=== PATIENT | female | born 1940 | race Caucasian/White ===

== ENCOUNTER 2019-10-05 23:14 | Inpatient (IN) | payer MEDICARE, BC ==
[~2019-10-05] VITALS: Ht 157.5 cm; Wt 73.9 kg
[~2019-10-05 23:14] MED LIST: ACIDOPHILUS LA1 EAC1 ORAL; CIPROFLOXACIN500 M2 ORAL; COLACE100 MG ORAL; HYZAAR 50-12.51 EACH ORAL; IBUPROFEN600 MG ORAL; LEXAPRO20 MG ORAL; METFORMIN HCL500 M1 ORAL; METRONIDAZOLE500 MG ORAL; PERCOCET 5-3251 EACH ORAL; SIMVASTATIN10 MG ORAL; SYNTHROID75 MCG ORAL; TENORMIN25 MG ORAL; ULTRAM ER100 MG PO; ZOFRAN4 MG/5 ML ORAL
[2019-10-06] VITALS (8 sets, daily range): BP systolic 119–151; BP diastolic 49–72
[2019-10-06] MEDS ORDERED: Omnipaque-300 100ml vial INJ PRN (00:30)
--- NOTE | 2019-10-06 00:40 | Emergency Room Report ---
History of Present Illness General Chief Complaint: Abdominal Pain Source: Patient Present Illness HPI 79-year-old female history of hypertension, history of diverticulitis presents with left lower quadrant pain x3 days, subjective fever/chills, no nausea no vomiting, she endorses a sharp pain no aggravating alleviating factors severity is moderate, constant, patient is worried it may be diverticulitis again patient presents for evaluation Allergies: Coded Allergies: SULFA (SULFONAMIDE ANTIBIOTICS) (Verified Allergy, Intermediate, disorientation, 09/15/14) [place] (Verified Allergy, Unknown, 12/13/15) Patient History Past Medical History: see triage record Reviewed Nursing Documentation: PMH: Agreed; PSxH: Agreed Nursing Documentation-PMH Past Medical History: No History, Except For Hx Cardiac Problems: Yes - HYSTERECTOMY GERD Hx Hypertension: Yes Hx Asthma: Yes - light asthma Hx Diabetes: Yes Hx Cancer: No Hx Gastrointestinal Problems: Yes - diverticulitis Hx Neurological Problems: No Review of Systems All Other Systems: negative except mentioned in HPI Physical Exam Vital Signs Date Time Temp Pulse Resp B/P (MAP) Pulse Ox O2 Delivery O2 Flow Rate FiO2 10/05/19 23:36 99.0 93 14 94 Room Air Sp02 EP Interpretation: reviewed, normal General Appearance: well appearing, no apparent distress, alert Head: normocephalic, atraumatic Eyes: bilateral eye PERRL, bilateral eye EOMI ENT: uvula midline, moist mucus membranes Neck: supple, thyroid normal, supple/symm/no masses Respiratory: lungs clear, no respiratory distress, no retraction, no accessory muscle use Cardiovascular #1: normal peripheral pulses, regular rate, rhythm, no edema, no gallop, no murmur Gastrointestinal: non tender, soft, no guarding, no rebound, tenderness - Left lower quadrant Musculoskeletal: normal inspection Neurologic: alert, oriented x3 Psychiatric: mood/affect normal Skin: no rash, warm/dry Medical Decision Making Diagnostic Impression: Primary Impression: Diverticulitis ER Course 79-year-old female presents with left lower quadrant pain x3 days concerning for diverticulitis versus appendicitis versus gastroenteritis Will provide pain medication, fluid resuscitation, plan to admit patient for pain control as an possible IV antibiotics Patient given Zosyn Patient given fluids Patient admitted to Dr. Patricio Laboratory Tests Test 10/06/19 00:35 10/06/19 02:15 White Blood Count 20.2 K/UL (4.8-10.8) H Red Blood Count 4.58 M/UL (4.20-5.40) Hemoglobin 14.0 G/DL (12.0-16.0) Hematocrit 41.3 % (37.0-47.0) Mean Corpuscular Volume 90 FL (80-99) Mean Corpuscular Hemoglobin 30.5 PG (27.0-31.0) Mean Corpuscular Hemoglobin Concent 33.9 G/DL (32.0-36.0) Red Cell Distribution Width 12.1 % (11.6-14.8) Platelet Count 367 K/UL (150-450) Mean Platelet Volume 6.5 FL (6.5-10.1) Neutrophils (%) (Auto) % (45.0-75.0) Lymphocytes (%) (Auto) % (20.0-45.0) Monocytes (%) (Auto) % (1.0-10.0) Eosinophils (%) (Auto) % (0.0-3.0) Basophils (%) (Auto) % (0.0-2.0) Differential Total Cells Counted 100 Neutrophils % (Manual) 82 % (45-75) H Lymphocytes % (Manual) 10 % (20-45) L Monocytes % (Manual) 5 % (1-10) Eosinophils % (Manual) 1 % (0-3) Basophils % (Manual) 0 % (0-2) Band Neutrophils 2 % (0-8) Platelet Estimate Adequate Platelet Morphology Normal Red Blood Cell Morphology Normal Sodium Level 140 MMOL/L (136-145) Potassium Level 4.7 MMOL/L (3.5-5.1) Chloride Level 100 MMOL/L (98-107) Carbon Dioxide Level 29 MMOL/L (21-32) Anion Gap 11 mmol/L (5-15) Blood Urea Nitrogen 22 mg/dL (7-18) H Creatinine 1.3 MG/DL (0.55-1.30) Estimate Glomerular Filtration Rate mL/min (>60) Glucose Level 229 MG/DL (74-106) H Calcium Level 9.6 MG/DL (8.5-10.1) Total Bilirubin 0.6 MG/DL (0.2-1.0) Aspartate Amino Transferase (AST) 11 U/L (15-37) L Alanine Aminotransferase (ALT) 19 U/L (12-78) Alkaline Phosphatase 94 U/L (46-116) Total Protein 7.6 G/DL (6.4-8.2) Albumin 3.5 G/DL (3.4-5.0) Globulin 4.1 g/dL Albumin/Globulin Ratio 0.9 (1.0-2.7) L Lipase 116 U/L (73-393) Urine Color Pale yellow Urine Appearance Clear Urine pH 5 (4.5-8.0) Urine Specific [place] 1.015 (1.005-1.035) Urine Protein Negative (NEGATIVE) Urine Glucose (UA) Negative (NEGATIVE) Urine Ketones Negative (NEGATIVE) Urine Blood Negative (NEGATIVE) Urine Nitrite Negative (NEGATIVE) Urine Bilirubin Negative (NEGATIVE) Urine Urobilinogen Normal MG/DL (0.0-1.0) Urine Leukocyte Esterase Negative (NEGATIVE) EKG Diagnostic Results EKG Time: 00:42 EP Interpretation: NSR, rate 84, QTc 47, no acute ST elevations, left axis deviation Rhythm Strip Diag. Results Rhythm Strip Time: 01:15 EP Interpretation: yes Rate: 85 Rhythm: NSR, no PVC's, no ectopy CT/MRI/US Diagnostic Results CT/MRI/US Diagnostic Results : Impression Final Report EXAM: CT Abdomen and Pelvis With Intravenous Contrast CLINICAL HISTORY: ABD PAIN TECHNIQUE: Axial computed tomography images of the abdomen and pelvis with intravenous contrast. CTDI is 25.6 mGy and DLP is 1456 mGy-cm. One or more of the following dose reduction techniques were used: automated exposure control, adjustment of the mA and/or kV according to patient size, use of iterative reconstruction technique. COMPARISON: December 13, 2015. FINDINGS: Lung bases: Bibasilar atelectasis. Mediastinum: Small hiatal hernia. ABDOMEN: Liver: Unremarkable. No mass. Gallbladder and bile ducts: Unremarkable. No calcified stones. No ductal dilation. Pancreas: Unremarkable. No mass. No ductal dilation. Spleen: Unremarkable. No splenomegaly. Adrenals: Stable nodularity in the left adrenal gland. Kidneys and ureters: Chronic scarring in the kidneys. No hydronephrosis. Stomach and bowel: Abnormal wall thickening of the mid sigmoid colon with associated diverticula and adjacent edema and stranding. PELVIS: Appendix: No findings to suggest acute appendicitis. Bladder: Unremarkable. No mass. Reproductive: Unremarkable as visualized. ABDOMEN and PELVIS: Intraperitoneal space: Trace amount of free fluid. No free air or fluid collections. Bones/joints: No acute fracture. No dislocation. Soft tissues: Unremarkable. Vasculature: Normal caliber abdominal aorta with atherosclerotic disease. Lymph nodes: Unremarkable. No enlarged lymph nodes. IMPRESSION: Findings consistent with acute diverticulitis in the mid sigmoid colon. Recommend short-term followup to ensure resolution and exclude underlying occult mass. Small amount of free fluid. No free air or fluid collections. Radiologist: Harleen Chauhan M.D. Electronically Signed: 10/06/19 04: 13 Study ready at 03:14 and initial results transmitted at 04:13 Last Vital Signs Date Time Temp Pulse Resp B/P (MAP) Pulse Ox O2 Delivery O2 Flow Rate FiO2 10/05/19 23:36 99.0 93 14 94 Room Air Disposition: ADMITTED INPATIENT Condition: Stable Harley Rahman MD Oct 06, 2019 00:40
[2019-10-06] MEDS ORDERED: Piperacillin/Tazobactam 3.375 GM in NS 110 ML IVPB ONE (00:45)
[2019-10-06] MEDS ORDERED: Hydromorphone 0.5mg/0.5ml inj IVP ONE ×2 (00:45→01:45)
[2019-10-06 01:15] LABS: HEMATOCRIT 41.3 % (37.0-47.0); MEAN CORPUSCULAR VOLUME 90 FL (80-99); PLATELET COUNT 367 K/UL (150-450); RED BLOOD COUNT 4.58 M/UL (4.20-5.40); RED CELL DISTRIBUTION WIDTH 12.1 % (11.6-14.8); WHITE BLOOD COUNT 20.2 K/UL (4.8-10.8)
[2019-10-06 01:21] LABS: ANION GAP 11 mmol/L (5-15); BLOOD UREA NITROGEN 22 mg/dL (7-18); CALCIUM 9.6 MG/DL (8.5-10.1); CARBON DIOXIDE 29 MMOL/L (21-32); CHLORIDE 100 MMOL/L (98-107); CREATININE 1.3 MG/DL (0.55-1.30); POTASSIUM 4.7 MMOL/L (3.5-5.1); SODIUM 140 MMOL/L (136-145)
[2019-10-06 01:27] LABS: ALANINE AMINOTRANSFERASE 19 U/L (12-78); ALBUMIN 3.5 G/DL (3.4-5.0); ALBUMIN/GLOBULIN RATIO 0.9 (1.0-2.7); ALKALINE PHOSPHATASE 94 U/L (46-116); ASPARTATE AMINO TRANSFERASE 11 U/L (15-37); BILIRUBIN,TOTAL 0.6 MG/DL (0.2-1.0)
[2019-10-06 02:27] LABS: APPEARANCE,URINE CLEAR; BILIRUBIN, URINE NEGATIVE (NEGATIVE); COLOR,URINE PALE YELLOW; GLUCOSE, URINE (UA) NEGATIVE (NEGATIVE); KETONES,URINE NEGATIVE (NEGATIVE); LEUKOCYTE ESTERASE ,URINE NEGATIVE (NEGATIVE); NITRITE,URINE NEGATIVE (NEGATIVE); PH,URINE 5 (4.5-8.0); PROTEIN,URINE NEGATIVE (NEGATIVE); UROBILINOGEN,URINE NORMAL MG/DL (0.0-1.0)
--- NOTE | 2019-10-06 04:14 | Diagnostic Imaging Report ---
EXAM: CT Abdomen and Pelvis With Intravenous Contrast CLINICAL HISTORY: ABD PAIN TECHNIQUE: Axial computed tomography images of the abdomen and pelvis with intravenous contrast. CTDI is 25.6 mGy and DLP is 1456 mGy-cm. One or more of the following dose reduction techniques were used: automated exposure control, adjustment of the mA and/or kV according to patient size, use of iterative reconstruction technique. COMPARISON: December 13, 2015. FINDINGS: Lung bases: Bibasilar atelectasis. Mediastinum: Small hiatal hernia. ABDOMEN: Liver: Unremarkable. No mass. Gallbladder and bile ducts: Unremarkable. No calcified stones. No ductal dilation. Pancreas: Unremarkable. No mass. No ductal dilation. Spleen: Unremarkable. No splenomegaly. Adrenals: Stable nodularity in the left adrenal gland. Kidneys and ureters: Chronic scarring in the kidneys. No hydronephrosis. Stomach and bowel: Abnormal wall thickening of the mid sigmoid colon with associated diverticula and adjacent edema and stranding. PELVIS: Appendix: No findings to suggest acute appendicitis. Bladder: Unremarkable. No mass. Reproductive: Unremarkable as visualized. ABDOMEN and PELVIS: Intraperitoneal space: Trace amount of free fluid. No free air or fluid collections. Bones/joints: No acute fracture. No dislocation. Soft tissues: Unremarkable. Vasculature: Normal caliber abdominal aorta with atherosclerotic disease. Lymph nodes: Unremarkable. No enlarged lymph nodes. IMPRESSION: Findings consistent with acute diverticulitis in the mid sigmoid colon. Recommend short-term followup to ensure resolution and exclude underlying occult mass. Small amount of free fluid. No free air or fluid collections.
[2019-10-06] MEDS ORDERED: Miralax 17gm pkt ORAL PRN (04:45)
[2019-10-06] MEDS ORDERED: Zolpidem 5mg tab ORAL PRN (04:45)
[2019-10-06] MEDS ORDERED: Morphine Sulfate 2mg/ml Inj(IV/IM USE ONLY) IVP PRN (04:45)
[2019-10-06] MEDS ORDERED: Morphine Sulfate 4mg/ml Inj (IV USE ONLY) IVP PRN (04:45)
[2019-10-06] MEDS: NovoLOG Insulin Flexpen SUBQ SCH ×4 (06:31→20:44)
[2019-10-06] MEDS: Atenolol 25mg tab ORAL SCH (08:47)
[2019-10-06] MEDS: Docusate 100mg cap ORAL SCH ×2 (08:47→20:43)
[2019-10-06] MEDS: Hyzaar 50-12.5mg tab ORAL SCH (08:47)
[2019-10-06] MEDS: Piperacillin/Tazobactam 3.375 GM in NS 110 ML IVPB SCH ×3 (09:51→23:15)
--- NOTE | 2019-10-06 12:42 | History & Physical ---
History and Physical History & Physicial HP dictated # [id number] Jonah Patricio MD Oct 06, 2019 12:42
[2019-10-07] VITALS (7 sets, daily range): BP systolic 120–149; BP diastolic 47–97
[2019-10-07] MEDS: Piperacillin/Tazobactam 3.375 GM in NS 110 ML IVPB SCH ×3 (06:31→22:53)
[2019-10-07] MEDS: NovoLOG Insulin Flexpen SUBQ SCH ×4 (06:43→20:41)
[2019-10-07] MEDS: Hyzaar 50-12.5mg tab ORAL SCH (09:00)
[2019-10-07] MEDS: Docusate 100mg cap ORAL SCH ×2 (09:00→20:42)
[2019-10-07] MEDS: Atenolol 25mg tab ORAL SCH (09:01)
--- NOTE | 2019-10-07 17:15 | Consultation ---
DATE OF CONSULTATION: 10/06/2019 GASTROENTEROLOGY CONSULTATION CONSULTING PHYSICIAN: Vida Torres M.D. REFERRING PHYSICIAN: Jonah Patricio M.D. CHIEF COMPLAINT: I was asked to see this patient by Dr. Jonah Patricio for evaluation of diverticulitis. HISTORY OF PRESENT ILLNESS: The patient is a pleasant 79-year-old white woman who was in her usual state of health until about 2 to 3 days prior to admission when she started noticing left lower quadrant abdominal pain which worsened with time and therefore she came to the hospital. This is her third attack of diverticulitis and she is admitted with pain. These in fact have happened over the last few years. The patient had a colonoscopy about a year ago, but she is not aware of any significant results. She has been started on antibiotics and she feels slightly better today. There has been no nausea or vomiting. The patient's bowel movements are sometimes daily, but she is somewhat irregular. PAST MEDICAL HISTORY: History of diabetes, hypertension, history of fibroids, anxiety disorder, and hypothyroidism. FAMILY HISTORY: Noncontributory. SOCIAL HISTORY: The patient does not smoke or drink. REVIEW OF SYSTEMS: Otherwise negative. MEDICATIONS: See the chart list for details. PHYSICAL EXAMINATION: GENERAL: Pleasant white woman, seen in the room. HEENT: Normocephalic and atraumatic. Sclerae anicteric. Oropharynx clear. NECK: Supple. CHEST: Clear to auscultation. CARDIOVASCULAR: Revealed regular rate. ABDOMEN: Soft with some mild pelvic tenderness, especially on the left side without guarding or rebound. EXTREMITIES: Revealed no edema. LABORATORY DATA AND IMAGING STUDIES: Reviewed. ASSESSMENT: This patient presents with recurrent diverticulitis, and this is the third episode for this patient. The patient should be given broad spectrum antibiotics and clear liquid diet should be started for now. As her exam improves, her diet can be advanced. The patient was advised on long-term need for aggressive bowel regimen to avoid constipation. In addition, should the attacks of diverticulitis become more frequent, then surgical resection may be indicated. However, at this time, medical management will be the proper choice. The patient's white count should be followed since it is quite elevated. RECOMMENDATIONS: Per above discussion and per orders written in the chart. Thank you for asking me to participate in the care of this patient. Vida Torres M.D. DR: VANDANA JOB#: [id number] CC: ARNOLD
--- NOTE | 2019-10-07 17:15 | History and Physical Report ---
DATE OF ADMISSION: 10/06/2019 CHIEF COMPLAINT: Abdominal pain. HISTORY OF PRESENT ILLNESS: This is a very pleasant 79-year-old female, who came to the emergency room with abdominal pain, which started about three days ago. The patient's pain is mostly in the left lower quadrant although she points it is not the whole lower abdomen. The patient had a history of diverticulitis before and she was worried that she may have it again and indeed in the emergency room, the CAT scan confirmed the patient has a diverticulitis and she was admitted. PAST MEDICAL HISTORY: Includes history of arthritis, tendinitis, hypertension, and diabetes mellitus. The patient has history of gastroesophageal reflux disease, hysterectomy. MEDICATIONS: Reviewed in the EMR. SOCIAL HISTORY: No history of smoking or alcohol abuse. The patient lives at home with sister who happens to be also in the emergency room now. REVIEW OF SYSTEMS: Noncontributory. PHYSICAL EXAMINATION: GENERAL: The patient is an elderly female, in no acute distress. VITAL SIGNS: Blood pressure is 136/72, pulse 61, respirations 18, and temperature 97.3. HEENT: [place] conjunctivae. Anicteric sclerae. NECK: Supple. LUNGS: Clear to auscultation. HEART: S1, S2 without murmurs or rubs. ABDOMEN: Soft. There is tenderness in the lower abdomen. EXTREMITIES: No cyanosis or edema. LABORATORY FINDINGS: [place] [address], hematocrit 41.3, hemoglobin is 14, platelet is 367,000. Chemistry panel shows serum sodium 140, potassium 4.7, chloride 100, CO2 29, BUN is 22, creatinine 1.3. Blood sugar is 229 and the UA is negative. ASSESSMENT: This is an 79-year-old female who was admitted with diagnosis of diverticulitis. CT scan confirmed it as being in the midsigmoid colon with associated diverticular adjacent edema and stranding. The patient has history of hypertension, history of diabetes, and arthritis. PLAN: The patient will be on full liquid diet. Pain medications. IV antibiotics. GI consultation will be obtained. Labs will be followed and further adjustment will be made in the patient's regimen. Jonah Patricio M.D. DR: SILVIA JOB#: [id number] CC:
--- NOTE | 2019-10-07 22:06 | General Progress Note ---
Assessment/Plan Problem List: (1) Diverticulitis ICD Codes: K57.92 - Dvtrcli of intest, part unsp, w/o perf or abscess w/o bleed SNOMED: 421195501 (2) DM (diabetes mellitus) ICD Codes: E11.9 - Type 2 diabetes mellitus without complications SNOMED: 53794031 (3) HTN (hypertension) ICD Codes: I10 - Essential (primary) hypertension SNOMED: 99807673 (4) Hypothyroidism ICD Codes: E03.9 - Hypothyroidism, unspecified SNOMED: 69542046 Assessment/Plan: SSI check A1 C diet as tolerated abxs follow CBC Subjective Allergies: Coded Allergies: SULFA (SULFONAMIDE ANTIBIOTICS) (Verified Allergy, Intermediate, disorientation, 09/15/14) [place] (Verified Allergy, Unknown, 12/13/15) Subjective feels better Objective Last 24 Hour Vital Signs Date Time Temp Pulse Resp B/P (MAP) Pulse Ox O2 Delivery O2 Flow Rate FiO2 10/07/19 21:00 Room Air 10/07/19 20:00 98.1 69 18 142/59 (86) 95 10/07/19 16:00 98.8 80 18 132/96 (108) 97 10/07/19 12:00 97.4 76 21 132/97 (109) 98 10/07/19 10:41 72 10/07/19 09:01 106 136/95 10/07/19 09:00 136/95 10/07/19 09:00 Room Air 10/07/19 08:00 98.9 16 139/95 (110) 95 10/07/19 04:00 98.0 20 149/62 (91) 100 10/07/19 00:00 98.0 18 120/47 (71) 94 Intake and Output 10/06/19 10/07/19 19:00 07:00 Intake Total 110.0 ml 260 ml Balance 110.0 ml 260 ml Intake Oral 150 ml IV Total 110.0 ml 110 ml # Voids 2 Height (Feet): 5 Height (Inches): 2.00 Weight (Pounds): 163 Cardiovascular: normal rate Respiratory/Chest: lungs clear Abdomen: soft Jonah Patricio MD Oct 07, 2019 22:06
--- NOTE | 2019-10-07 23:14 | General Progress Note ---
Assessment/Plan Assessment/Plan: Assessment - diverticulitis - DM - HTN Recommendations - abx - PPI - Reflux precautions - Elevate HOB Subjective Allergies: Coded Allergies: SULFA (SULFONAMIDE ANTIBIOTICS) (Verified Allergy, Intermediate, disorientation, 09/15/14) [place] (Verified Allergy, Unknown, 12/13/15) Subjective feels better less abd pain Objective Last 24 Hour Vital Signs Date Time Temp Pulse Resp B/P (MAP) Pulse Ox O2 Delivery O2 Flow Rate FiO2 10/07/19 21:00 Room Air 10/07/19 20:00 98.1 69 18 142/59 (86) 95 10/07/19 16:00 98.8 80 18 132/96 (108) 97 10/07/19 12:00 97.4 76 21 132/97 (109) 98 10/07/19 10:41 72 10/07/19 09:01 106 136/95 10/07/19 09:00 136/95 10/07/19 09:00 Room Air 10/07/19 08:00 98.9 16 139/95 (110) 95 10/07/19 04:00 98.0 20 149/62 (91) 100 10/07/19 00:00 98.0 18 120/47 (71) 94 Intake and Output 10/06/19 10/07/19 19:00 07:00 Intake Total 110.0 ml 260 ml Balance 110.0 ml 260 ml Intake Oral 150 ml IV Total 110.0 ml 110 ml # Voids 2 Height (Feet): 5 Height (Inches): 2.00 Weight (Pounds): 163 Objective WDWN NCAT supple CTA RR abd soft Mild pelvic TTP no edema Vida Torres MD Oct 07, 2019 23:14
[2019-10-08 04:50] VITALS: BP 146/64
[2019-10-08] MEDS: NovoLOG Insulin Flexpen SUBQ SCH ×2 (06:03→11:41)
[2019-10-08] MEDS: Piperacillin/Tazobactam 3.375 GM in NS 110 ML IVPB SCH (06:06)
[2019-10-08 06:08] LABS: BASOPHILS % (AUTO) 0.6 % (0.0-2.0); EOSINOPHILS % (AUTO) 2.8 % (0.0-3.0); HEMATOCRIT 38.3 % (37.0-47.0); HEMOGLOBIN 12.7 G/DL (12.0-16.0); LYMPHOCYTES % (AUTO) 25.7 % (20.0-45.0); MEAN CORPUSCULAR VOLUME 91 FL (80-99); MONOCYTES % (AUTO) 6.3 % (1.0-10.0); NEUTROPHILS % (AUTO) 64.5 % (45.0-75.0); PLATELET COUNT 297 K/UL (150-450); RED BLOOD COUNT 4.19 M/UL (4.20-5.40); RED CELL DISTRIBUTION WIDTH 12.2 % (11.6-14.8); WHITE BLOOD COUNT 11.2 K/UL (4.8-10.8)
[2019-10-08] MEDS ORDERED: NovoLOG Insulin Flexpen SUBQ SCH (06:30)
[2019-10-08 08:00] VITALS: BP 140/71
[2019-10-08] MEDS: Hyzaar 50-12.5mg tab ORAL SCH (08:43)
[2019-10-08] MEDS: Atenolol 25mg tab ORAL SCH (08:43)
[2019-10-08] MEDS: Docusate 100mg cap ORAL SCH (08:43)
[2019-10-08 12:00] VITALS: BP 150/64
--- NOTE | 2019-10-08 12:12 | Consultation ---
Consult Note Consult Note 79 yo female with left knee arthritis. being managed as outpt no xrays done. pain when walking. lateral jointline tenderness. valgus deformity Assessment/Plan left knee arthritis 1. rec continued outpt care. 2. possible cortisone injection and offloading bracing 3. likely will require TKA Ailyn Multani Oct 08, 2019 12:12
[2019-10-08] MEDS ORDERED: AUGMENTIN 875-1 EAC1 ORAL (13:06)
--- NOTE | 2019-10-08 13:11 | General Progress Note ---
Assessment/Plan Problem List: (1) Diverticulitis ICD Codes: K57.92 - Dvtrcli of intest, part unsp, w/o perf or abscess w/o bleed SNOMED: 946897422 (2) DM (diabetes mellitus) ICD Codes: E11.9 - Type 2 diabetes mellitus without complications SNOMED: 68837520 (3) HTN (hypertension) ICD Codes: I10 - Essential (primary) hypertension SNOMED: 48711745 (4) Hypothyroidism ICD Codes: E03.9 - Hypothyroidism, unspecified SNOMED: 58508374 Assessment/Plan: switch to Augmentin po Dc today Subjective Allergies: Coded Allergies: SULFA (SULFONAMIDE ANTIBIOTICS) (Verified Allergy, Intermediate, disorientation, 09/15/14) [place] (Verified Allergy, Unknown, 12/13/15) Subjective feels better Objective Last 24 Hour Vital Signs Date Time Temp Pulse Resp B/P (MAP) Pulse Ox O2 Delivery O2 Flow Rate FiO2 10/08/19 12:00 98.1 65 18 150/64 (92) 97 10/08/19 09:00 Room Air 10/08/19 08:43 140/71 10/08/19 08:43 65 140/71 10/08/19 08:00 98.5 65 18 140/71 (94) 96 10/08/19 04:50 97.0 64 20 146/64 (91) 98 10/07/19 23:26 98.5 69 20 122/59 (80) 96 10/07/19 21:00 Room Air 10/07/19 20:00 98.1 69 18 142/59 (86) 95 10/07/19 16:00 98.8 80 18 132/96 (108) 97 Intake and Output 10/07/19 10/08/19 19:00 07:00 Intake Total 1060.0 ml 410 ml Balance 1060.0 ml 410 ml Intake Oral 300 ml IV Total 110.0 ml 110 ml Other 950 ml # Voids 3 Laboratory Tests 10/08/19 05:05: White Blood Count 11.2H, Red Blood Count 4.19L, Hemoglobin 12.7, Hematocrit 38.3 , Mean Corpuscular Volume 91, Mean Corpuscular Hemoglobin 30.3, Mean Corpuscular Hemoglobin Concent 33.1, Red Cell Distribution Width 12.2, Platelet Count 297, Mean Platelet Volume 6.4L, Neutrophils (%) (Auto) 64.5, Lymphocytes ( %) (Auto) 25.7, Monocytes (%) (Auto) 6.3, Eosinophils (%) (Auto) 2.8, Basophils (%) (Auto) 0.6, Hemoglobin A1c 7.6H Height (Feet): 5 Height (Inches): 2.00 Weight (Pounds): 163 Cardiovascular: normal rate Respiratory/Chest: lungs clear Abdomen: soft Jonah Patricio MD Oct 08, 2019 13:11
--- NOTE | 2019-10-08 18:00 | Consultation ---
DATE OF CONSULTATION: 10/08/2019 CONSULTING PHYSICIAN: Richard Reyes M.D. REFERRING PHYSICIAN: Consult was called by Dr. Patricio for concerns of left knee pain. HISTORY OF PRESENT ILLNESS: The patient is a pleasant 79-year-old female with known left knee arthritis. She gets viscosupplementation injections every 6 months with her outpatient orthopedic surgeon. She is considering total knee arthroplasty in the upcoming months. Consult has been called during her hospitalization for continued complaints of knee pain. The patient is admitted for diverticulosis. She has swelling. She is limping. She is having a hard time getting around. PAST MEDICAL HISTORY: Diverticulosis as well as hypertension, diabetes. PAST SURGICAL HISTORY: None. CURRENT MEDICATIONS: Please see chart. ALLERGIES: Sulfa. REVIEW OF SYSTEMS: Negative other than knee pain. SOCIAL HISTORY: She is independent with all activities. PHYSICAL EXAMINATION: She is a very pleasant woman, cooperative with examination. She has a valgus deformity to the left knee with 2+ tenderness of the lateral joint line. She has full extension and about 120 degrees of flexion. She is stable to varus and valgus stress. There is no significant swelling. There is no sign of infection. X-RAY AND MRI: None were taken during this admission. IMPRESSION: Left knee valgus deformity and likely underlying arthritis with treatment being tried on outpatient basis including viscosupplementation. DISCUSSION: At this time, I discussed with the patient my findings. She is being discharged today. We did talk about possibly getting some x-rays and doing a cortisone injection. However, she can wait until she sees commercial credit specialist as an outpatient. I discussed cortisone injection as well as offloading, bracing, physical therapy, or possible surgery. I think that is reasonable. I will be happy to see the patient in outpatient setting should she desire although she has someone she has been seeing. At this point, I would not add additional recommendations to her current plan of care. She is planning to be discharged today and will be happy to see her as an outpatient for continued care. She can otherwise see her current orthopedic surgeon. Richard Reyes M.D. Kristina Weinberg DR: NAEL JOB#: [id number] CC: ARNOLD
--- NOTE | 2019-10-08 21:27 | General Progress Note ---
Assessment/Plan Assessment/Plan: Assessment - diverticulitis - DM - HTN Recommendations - abx - can change to po - PPI - Reflux precautions - Elevate HOB - advised to f/u with me or GI of choice for colonoscopy in 4-6 weeks Subjective Allergies: Coded Allergies: SULFA (SULFONAMIDE ANTIBIOTICS) (Verified Allergy, Intermediate, disorientation, 09/15/14) [place] (Verified Allergy, Unknown, 12/13/15) Subjective feels better less abd pain Objective Last 24 Hour Vital Signs Date Time Temp Pulse Resp B/P (MAP) Pulse Ox O2 Delivery O2 Flow Rate FiO2 10/08/19 12:00 98.1 65 18 150/64 (92) 97 10/08/19 09:00 Room Air 10/08/19 08:43 140/71 10/08/19 08:43 65 140/71 10/08/19 08:00 98.5 65 18 140/71 (94) 96 10/08/19 04:50 97.0 64 20 146/64 (91) 98 10/07/19 23:26 98.5 69 20 122/59 (80) 96 Intake and Output 10/07/19 10/08/19 19:00 07:00 Intake Total 1060.0 ml 410 ml Balance 1060.0 ml 410 ml Intake Oral 300 ml IV Total 110.0 ml 110 ml Other 950 ml # Voids 3 Laboratory Tests 10/08/19 05:05: White Blood Count 11.2H, Red Blood Count 4.19L, Hemoglobin 12.7, Hematocrit 38.3 , Mean Corpuscular Volume 91, Mean Corpuscular Hemoglobin 30.3, Mean Corpuscular Hemoglobin Concent 33.1, Red Cell Distribution Width 12.2, Platelet Count 297, Mean Platelet Volume 6.4L, Neutrophils (%) (Auto) 64.5, Lymphocytes ( %) (Auto) 25.7, Monocytes (%) (Auto) 6.3, Eosinophils (%) (Auto) 2.8, Basophils (%) (Auto) 0.6, Hemoglobin A1c 7.6H Height (Feet): 5 Height (Inches): 2.00 Weight (Pounds): 163 Objective WDWN NCAT supple CTA RR abd soft Mild pelvic TTP no edema Vida Torres MD Oct 08, 2019 21:27
--- NOTE | 2019-10-09 10:01 | Discharge Summary ---
Discharge Summary Discharge Summary _ DATE OF ADMISSION: 10/06/2019 DATE OF DISCHARGE: 10/08/2019 DISCHARGED BY: Dr. Patricio REASON FOR ADMISSION: 79 years old female with past medical history of arthritis, hypertension, diabetes mellitus, tendinitis, GERD, status post hysterectomy, presented to emergency department with abdominal pain for 3 days. Pain was located in the left lower quadrant . Patient had a history of diverticulitis in the past and was worried if she had it again. CT scan of the abdomen and pelvis revealed acute diverticulitis in the mid sigmoid colon. Laboratory work-up revealed leukocytosis WBC 20.2, stable hemoglobin , hematocrit and platelet count. EKG revealed sinus rhythm ,no acute ischemic changes Stable electrolytes. BUN 22, creatinine 1.3. Glucose 229. Stable LFT and lipase. Urinalysis revealed no evidence of urinary tract infection. In emergency department patient started on empiric antibiotic and fluid resuscitation, received analgesic and admitted for further management. CONSULTANTS: GI specialist Dr. Torres orthopedic surgeon Dr. Reyes [facility]SE: Patient admitted to medical surgical floor. Patient was on IV fluids and empiric antibiotics. Pain management was addressed as needed. GI specialist followed. Patient started on GI prophylaxis with PPI. Patient was gradually improving. Leukocytosis trended down to 11.2. No fevers. Bowel regimen instituted. GI specialist recommended to follow-up with GI specialist for colonoscopy in 4 to 6 weeks. Patient will need to continue oral antibiotics upon discharge to complete the course of treatment. Blood pressure was managed with beta-douglas and combination of losartan/ hydrochlorothiazide. Blood sugar was managed with sliding scale of insulin. Levothyroxine continued. Supportive care provided. Orthopedic surgeon seen and evaluated patient due to concern of left knee pain. Per surgery, patient had left knee valgus deformity and likely underlying arthritis. Patient was tried on outpatient basis with a Visco supplementation. Findings were discussed with the patient. Patient to follow-up with orthopedic surgeon as outpatient. Patient clinically stabilized and was ready for discharge home. FINAL DIAGNOSES: Acute diverticulitis Diabetes mellitus Hypertension Hypothyroidism Left knee valgus deformity with likely underlying arthritis DISCHARGE MEDICATIONS: See Medication Reconciliation list. DISCHARGE INSTRUCTIONS: Patient was discharged home. Follow-up with a primary care provider in 1 week. Follow-up with orthopedic surgeon as advised. Follow-up with GI specialist in 4 to 6 weeks for colonoscopy. I have been assigned to dictate discharge summary for this account. I was not involved in the patient's management. Yuli Mtz NP Oct 09, 2019 10:01
== END 2019-10-08 15:26 | disposition home or self-care (01) | DRG 392 ==
LOC: EMR 23:55 → 4E 10-06 01:14 → EDBEDREQ 10-06 03:45
DX: K57.92 Diverticulitis of intestine, part unspecified, without perforation or abscess without bleeding (principal); I10 Essential (primary) hypertension; E11.9 Type 2 diabetes mellitus without complications; M17.12 Unilateral primary osteoarthritis, left knee; K21.9 Gastro-esophageal reflux disease without esophagitis; E03.9 Hypothyroidism, unspecified
CPT/HCPCS: 36415; 74177; 80053; 81003; 82962; 83036; 83690; 85007; 85025; 93005; 96361; 96365; 96375; 96376; 99285; J1815; J2405; J7030